=== PATIENT | female | born 1980 | race Caucasian/White ===

== ENCOUNTER 2024-01-20 15:41 | Observation (INO) | payer OTHER, SELFPAY ==
[2024-01-20] VITALS (10 sets, daily range): BP systolic 125–141; BP diastolic 78–96; PULSE 105–122; RESP 17–24; TEMP 36.1–36.9; O2SAT 97–100; BMI 28.8
[2024-01-20 16:12] LABS: Add Manual Diff / Slide Review NO; Basophils Absolute Auto 0 /uL (0-100); Basophils Percent Auto 0.1 % (0-2); Eosinophils Absolute Auto 0 /uL (0-450); Hematocrit 40.4 % (36-46); Hemoglobin 13.8 g/dL (12.0-16.0); Lymphocytes Absolute Auto 800 /uL (1100-4500); Lymphocytes Percent Auto 4.7 % (25-40); Mean Corpuscular HGB Conc 34.2 % (30-36); Mean Corpuscular Hemoglobin 31.2 PG (26-34); Mean Corpuscular Volume 91.2 fL (80-100); Monocytes Absolute Auto 800 /uL (0-900); Neutrophils Absolute Auto 14900 /uL (1500-7000); Neutrophils Percent Auto 90.2 % (50-75); Platelet Count 196 X10^3/uL (150-400); Red Blood Cell Count 4.44 X10^6/uL (4.0-5.2); Red Cell Distribution Width 12.7 % (11.6-14.8); White Blood Cell Count 16.5 X10^3/uL (4.5-11.0)
--- NOTE | 2024-01-20 16:12 | ED.GENADULT ---
HPI - General Adult General Chief complaint: Abdominal Pain Stated complaint: lower rt abd pain Time Seen by Provider: 01/20/24 16:00 Source: patient Mode of arrival: Ambulatory History of Present Illness HPI narrative: Otherwise healthy 43-year-old woman IUD in place comes in with abdominal pain. She began notice some periumbilical pain earlier this morning that is now localizing to the right lower quadrant and becoming persistently worse. She is passing gas did have a bowel movement this did not influence her pain. She has not describing fevers, cough, palpitations, headache. Movement is becoming more and more painful. She describes no significant vaginal discharge Related Data Home Medications Medication Instructions Recorded Confirmed fluticasone propionate 50 1 spray intranasal DAILY 12/30/23 01/20/24 mcg/actuation nasal spray,suspension (Flonase Allergy Relief) sumatriptan succinate 50 mg tablet 50 mg PO QD-BID PRN migraine 01/20/24 01/20/24 Allergies Allergy/AdvReac Type Severity Reaction Status Date / Time erythromycin base AdvReac Mild Rash Verified 01/20/24 15:44 Sulfa (Sulfonamide AdvReac Rash Verified 01/20/24 15:44 Antibiotics) Review of Systems Review of Systems Narrative: Pertinent positive and negative findings as per HPI Patient History Social History household members: spouse Smoking Status: Never smoker alcohol intake: current Smoking Status: Never smoker alcohol intake frequency: 0-2 drinks per day Substance Use Type: does not use Exam Initial Vital Signs Initial Vital Signs: Vital Signs Temperature 97.0 F L 01/20/24 15:44 Pulse Rate 122 H 01/20/24 15:44 Respiratory Rate 17 01/20/24 15:44 Blood Pressure 131/78 01/20/24 15:44 Pulse Oximetry 98 01/20/24 15:44 Oxygen Delivery Method Room Air 01/20/24 15:44 General: Appears uncomfortable but Able to give a complete and coherent history. Well-nourished well-developed HEENT: Moist mucous membranes, normal sclera with reactive pupils, Respiratory: Lungs are clear to auscultation, no wheezing no rales no rhonchi. Full and symmetrical air movement Cardiac: Regular rate and rhythm no murmurs no bruits Abdomen: Soft, significant tenderness in the right lower quadrant with guarding but no rebound. No flank pain Skin: Warm and dry, no rashes Neurologic: Grossly neurologically intact with no obvious asymmetries or abnormalities Extremities: No trauma, well perfused Psych: Cooperative, appropriate insight and affect Course Orders Ordered: Acetaminophen (Acetaminophen 325 Mg Tablet) 650 mg PO Q6H PRN PRN Reason: Fever/Mild Pain (1-3) Acetaminophen (Acetaminophen 325 Mg Tablet) 975 mg PO NOW PRN PRN Reason: Pain, Moderate (4-6) Last Admin: 01/21/24 10:07 Dose: 975 mg Documented By: CIARA Hydrocodone Bitart/Acetaminophen (Hydrocodone/Acet 5/325 Tablet) 1 tab PO Q4H PRN PRN Reason: Pain, Moderate (4-6) Last Admin: 01/20/24 20:25 Dose: 1 tab Documented By: JACOBO Hydrocodone Bitart/Acetaminophen (Hydrocodone/Acet 5/325 Tablet) 2 tab PO Q4H PRN PRN Reason: Pain, Severe (7-10) Last Admin: 01/21/24 02:59 Dose: 2 tab Documented By: JACOBO Fentanyl (Fentanyl 100 Mcg/2 Ml Inj) 0 mcg IV Q5MIN PRN PRN Reason: Pain, Severe (7-10) Hydromorphone HCl (Hydromorphone 0.5 Mg Inj) 0.5 mg IV Q4H PRN PRN Reason: Pain, Moderate (4-6) Hydromorphone HCl (Hydromorphone 1 Mg Inj) 0 mg IV Q5MIN PRN PRN Reason: Pain, Mild (1-3) Piperacillin Sod/Tazobactam (Sod 3.375 gm/ Sodium Chloride) 100 mls @ 25 mls/hr IV Q8H [facility] Last Admin: 01/21/24 15:09 Dose: 25 mls/hr Documented By: Infusion: 01/21/24 13:23 Dose: Infused Documented By: Admin: 01/21/24 06:31 Dose: 25 mls/hr Documented By: Infusion: 01/21/24 02:40 Dose: Infused Documented By: Admin: 01/20/24 22:40 Dose: 25 mls/hr Documented By: JACOBO Sodium Chloride (Normal Saline 0.9%) 1,000 mls @ 100 mls/hr IV CONT [facility] Last Admin: 01/20/24 22:33 Dose: 100 mls/hr Documented By: JACOBO Ibuprofen (Ibuprofen 600 Mg Tablet) 600 mg PO Q6H PRN PRN Reason: Fever/Mild Pain (1-3) Lorazepam (Lorazepam 2 Mg/Ml Inj) 0.25 mg IV NOW PRN PRN Reason: Anxiety Last Admin: 01/21/24 13:45 Dose: 0.25 mg Documented By: LDV Naloxone HCl (Naloxone 0.4 Mg/Ml Vial) 0.2 mg IV Q2MIN PRN PRN Reason: Opiate Reversal Ondansetron HCl (Ondansetron 4 Mg Odt) 4 mg PO NOW PRN PRN Reason: Nausea And Vomiting Last Admin: 01/21/24 12:51 Dose: 4 mg Documented By: LDV Ondansetron HCl (Ondansetron 4 Mg/2 Ml Inj) 4 mg IV NOW PRN PRN Reason: Nausea And Vomiting Last Admin: 01/21/24 02:55 Dose: 4 mg Documented By: Admin: 01/20/24 18:35 Dose: 4 mg Documented By: DULCE Oxycodone HCl (Oxycodone Ir 5 Mg Tablet) 5 mg PO PACUNOW PRN PRN Reason: Mild or moderate pain Sumatriptan Succinate (Sumatriptan 25 Mg Tablet) 50 mg PO Q2H PRN PRN Reason: Headache Discontinued Medications Bupivacaine HCl (Bupivacaine 0.5% (Pf) 30 Ml Vial) 30 ml INJ NOW ONE Stop: 01/21/24 11:17 Last Admin: 01/21/24 11:16 Dose: 30 ml Documented By: Hydromorphone HCl (Hydromorphone 0.5 Mg Inj) 0.5 mg IV Q15MIN PRN PRN Reason: Pain, Hydromorphone HCl (Hydromorphone 0.5 Mg Inj) 0.5 mg IV Q4H PRN PRN Reason: Pain, Moderate (4-6) Sodium Chloride (Normal Saline 0.9%) 1,000 mls @ 1,000 mls/hr IV BOLUS ONE Stop: 01/20/24 17:09 Last Infusion: 01/20/24 17:22 Dose: Infused Documented By: Admin: 01/20/24 16:15 Dose: 1,000 mls/hr Documented By: CARINA Sodium Chloride (Normal Saline 0.9%) 1,000 mls @ 1,000 mls/hr IV BOLUS ONE Stop: 01/20/24 17:16 Last Admin: 01/20/24 17:57 Dose: Not Given Documented By: RANDALL Piperacillin Sod/Tazobactam (Sod 4.5 gm/ Sodium Chloride) 100 mls @ 200 mls/hr IV NOW ONE Stop: 01/20/24 16:30 Last Infusion: 01/20/24 17:49 Dose: Infused Documented By: Admin: 01/20/24 17:04 Dose: 200 mls/hr Documented By: RANDALL Lactated Ringer's (Lactated Ringers) 1,000 mls @ 100 mls/hr IV CONT MICKI Last Infusion: 01/21/24 12:03 Dose: Infused Documented By: Admin: 01/21/24 09:55 Dose: 100 mls/hr Documented By: Infusion: 01/21/24 04:36 Dose: Infused Documented By: Admin: 01/20/24 18:36 Dose: 100 mls/hr Documented By: DULCE Cefazolin Sodium/Dextrose (Ancef) 100 mls @ 200 mls/hr IV NOW ONE Stop: 01/21/24 11:42 Last Admin: 01/21/24 10:40 Dose: 200 mls/hr Documented By: SHABANA Ondansetron HCl (Ondansetron 4 Mg/2 Ml Inj) 4 mg IV NOW ONE Stop: 01/20/24 16:18 Last Admin: 01/20/24 17:22 Dose: Not Given Documented By: RANDALL Scopolamine (Scopolamine 1 Patch) 1 patch TOP NOW ONE Stop: 01/21/24 10:14 Last Admin: 01/21/24 10:24 Dose: 1 patch Documented By: CIARA Vital Signs Vital signs: Vital Signs - 8 hr 01/20/24 15:44 01/20/24 15:59 01/20/24 16:00 Temperature 97.0 F L Pulse Rate 122 H 117 H 118 H Respiratory Rate 17 Blood Pressure 131/78 Pulse Oximetry 98 98 98 Oxygen Delivery Method Room Air 01/20/24 16:02 01/20/24 16:02 01/20/24 16:30 Temperature Pulse Rate 114 H Respiratory Rate 24 Blood Pressure 139/93 H 141/96 H Pulse Oximetry 97 Oxygen Delivery Method 01/20/24 16:30 Temperature Pulse Rate 113 H Respiratory Rate 21 Blood Pressure Pulse Oximetry 97 Oxygen Delivery Method Medical Decision Making Lab Data 01/20/24 15:55 01/20/24 15:55 Labs: Lab Results 01/20/24 01/20/24 Range/Units 15:55 16:00 WBC 16.5 H (4.5-11.0) X10^3/uL RBC 4.44 (4.0-5.2) X10^6/uL Hgb 13.8 (12.0-16.0) g/dL Hct 40.4 (36-46) % MCV 91.2 (80-100) fL MCH 31.2 (26-34) PG MCHC 34.2 (30-36) % RDW 12.7 (11.6-14.8) % Plt Count 196 (150-400) X10^3/uL Neut % (Auto) 90.2 H (50-75) % Lymph % (Auto) 4.7 L (25-40) % [place] % (Auto) 5.0 (3-14) % Eos % (Auto) 0.0 L (2-4) % Baso % (Auto) 0.1 (0-2) % Neut # (Auto) 55701 H (8196-3796) /uL Lymph # (Auto) 800 L (4993-2936) /uL [place] # (Auto) 800 (0-900) /uL Eos # (Auto) 0 (0-450) /uL Baso # (Auto) 0 (0-100) /uL Sodium 134 L (137-145) mmol/L Potassium 4.1 (3.4-5.1) mmol/L Chloride 103 (98-107) mmol/L Carbon Dioxide 24 (22-32) mmol/L BUN 13 (7-17) mg/dL Creatinine 0.71 (0.52-1.04) mg/dL Estimated GFR > 60 (>60) mL/min BUN/Creatinine Ratio 18.3 (6-22) Glucose 125 H (70-100) mg/dL Lactate 1.7 (0.7-2.1) mmol/L Calcium 9.3 (8.4-10.2) mg/dL Total Bilirubin 0.8 (0.2-1.3) mg/dL AST 35 (14-36) IU/L ALT 27 (<35) IU/L Alkaline Phosphatase 67 (38-126) U/L Total Protein 7.5 (6.3-8.2) g/dL Albumin 4.3 (3.5-5.0) g/dL Globulin 3.2 (1.7-4.1) g/dL Albumin/Globulin Ratio 1.3 (1.0-2.8) Lipase 87 (23-300) U/L Procalcitonin 0.046 (<0.5) ng/mL Urine RBC 0-1/hpf (0-5/HPF) Urine WBC 0-1/hpf (0-5/HPF) Ur Squamous Epith Cells 0-1 /hpf (0-5/HPF) Urine Bacteria None seen (None) Ur Culture Indicated? Cult not indicated Vol Urine Centrifuged 10ml (spun) Point of Care Testing Test Results Negative Urine Dip Bedside Urine Glucose Negative Bedside Urine Bilirubin - Negative Bedside Urine Ketone - Negative Urine Specific [place] 1.020 Bedside Urine Occult Blood +/- Bedside Urine pH 6.0 Bedside Urine Protein - Negative Bedside Urine Urobilinogen - Negative Bedside Urine Nitrite - Negative Bedside Urine Leukocytes - Negative Esterase Point of care testing: Point of Care Testing Test Results Negative Urine Dip Bedside Urine Glucose Negative Bedside Urine Bilirubin - Negative Bedside Urine Ketone - Negative Urine Specific [place] 1.020 Bedside Urine Occult Blood +/- Bedside Urine pH 6.0 Bedside Urine Protein - Negative Bedside Urine Urobilinogen - Negative Bedside Urine Nitrite - Negative Bedside Urine Leukocytes - Negative Esterase [facility] Narrative Medical decision making narrative: CC: Right lower quadrant pain developing over the day Complicating co-morbidities: Describes a history of chronic right hip pain, she thought that the discomfort this morning was related to her hip. Data collected from: patient Differential considered: Appendicitis, pyelonephritis, kidney stone, ovarian abnormality Exam documented above, pertinent findings include: Significant right lower quadrant tenderness with guarding not yet rebound. No flank pain Lab Test results independently reviewed as above. Pertinent findings: CBC is notable for white count at 16.5 with 90.2 neutrophils. She has no anemia Chemistries are reassuring with normal renal function Imaging studies independently reviewed: Preliminary ultrasound report is consistent with acute appendicitis. Appendix is dilated to 1.1 cm, has 3 stones the tip, the entire appendix is hyperemic, she does have some free fluid but no evidence of rupture Consultations: 5pm Care is reviewed with Dr. Maldonado who will come to see and evaluate the patient Treatments: Fluids, Zosyn, Zofran, Dilaudid Re-evaluations: Findings reviewed with the patient. Confirmed that her last meal was at 1:00 p.m. this afternoon and it was chicken noodle soup Discussion: 43-year-old woman with developing appendicitis no evidence of rupture at this point. She has been started on antibiotics, pain is adequately controlled, have reviewed with Dr. Maldonado are gentleman surgeon today. He will be by to evaluate her further with anticipation of surgical appendectomy. Discharge Plan Departure Patient Disposition: Admitted as Observation Clinical Impression: Acute appendicitis Qualifiers: Acute appendicitis type: with localized peritonitis Appendicitis gangrene presence: without gangrene Appendicitis perforation presence: without perforation Appendicitis abscess presence: without abscess Qualified Code(s): K35.30 - Acute appendicitis with localized peritonitis, without perforation or gangrene Admit Date/Time: 01/20/24 18:00 Admit Provider: Ranjith Maldonado
[2024-01-20] MEDS: SODIUM CHLORIDE 0.9% 1,000 ML 1000 ML IV (16:15)
--- NOTE | 2024-01-20 16:18 | DI.US.S_ITS ---
PROCEDURE: US ABDOMEN LIMITED INDICATIONS: RLQ pain, strong suspicion for appy TECHNIQUE: Real-time focused scanning was performed of the abdomen with attention to the appendix, with image documentation. COMPARISON: None. FINDINGS: Appendix visualization: Questionable appearance of partially visualized appendiceal tip Appendix measurements: 9 mm Associated findings: Echogenic fat: Present Appendiceal compressibility: Absent Appendicoliths: Present Nearby free fluid: Simple free fluid Lymphadenopathy: Absent Tenderness on exam: Present IMPRESSION: Very limited visualization of what appears to be a possible appendiceal tip. If it is indeed the appendix it is enlarged and does not demonstrate compressibility. Mild surrounding fluid. Findings are suggestive of appendicitis. However, secondary to very limited visualization, if concern remains, CT is recommended. Dictated by: Felecia Castillo M.D. on 01/20/2024 at 17:17 Approved by: Felecia Castillo M.D. on 01/20/2024 at 17:18
[2024-01-20 16:28] LABS: Lactate (Lactic Acid) 1.7 mmol/L (0.7-2.1)
[2024-01-20 16:29] LABS: Alanine Aminotransferase 27 IU/L (<35); Albumin 4.3 g/dL (3.5-5.0); Albumin Globulin Ratio 1.3 (1.0-2.8); Alkaline Phosphatase 67 U/L (38-126); Aspartate Aminotransferase 35 IU/L (14-36); BUN Creatinine Ratio 18.3 (6-22); Bilirubin Total 0.8 mg/dL (0.2-1.3); Blood Urea Nitrogen 13 mg/dL (7-17); Calcium 9.3 mg/dL (8.4-10.2); Carbon Dioxide 24 mmol/L (22-32); Chloride 103 mmol/L (98-107); Estimated Glomerular Filt Rate > 60 mL/min (>60); Globulin 3.2 g/dL (1.7-4.1); Glucose 125 mg/dL (70-100); HEMOLYSIS 15 (0-50); Lipase 87 U/L (23-300); Potassium 4.1 mmol/L (3.4-5.1); Sodium 134 mmol/L (137-145); Total Protein 7.5 g/dL (6.3-8.2)
[2024-01-20 16:37] LABS: Urine Volume 10mL (spun)
[2024-01-20 16:38] LABS: Bacteria Urine None Seen; Culture Indicated Urine Cult Not Indicated; RBC Urine 0-1/HPF (0-5/HPF); Squamous Epithelial Cell Urine 0-1 /HPF (0-5/HPF); WBC Urine 0-1/HPF (0-5/HPF)
[2024-01-20 16:45] LABS: Procalcitonin 0.046 ng/mL (<0.5)
[2024-01-20] MEDS: PIPERACILLIN/TAZO 4.5 GM in SODIUM CHLORIDE 0.9% 100 ML IV (17:04)
--- NOTE | 2024-01-20 17:34 | PM.HP.1 ---
History of Present Illness History of Present Illness Date Patient Seen: 01/20/24 Time Patient Seen: 17:34 Chief complaint: lower rt abd pain Narrative: Sara is a 43-year-old woman who presents to the ER with 1 day of right lower quadrant abdominal pain. She has had some nausea and vomiting. She had some diarrhea yesterday. No prior abdominal surgeries. In the ER today she has an elevated white count and ultrasound that shows a most likely acute appendicitis without perforation. [facility] Social History Smoking Status: Never smoker Meds Home Medications and Allergies Home Medications Medication Instructions Recorded Confirmed Type amoxicillin 875 mg-potassium 1 tab PO BID #14 tabs 12/30/23 12/30/23 Rx clavulanate 125 mg tablet fluticasone propionate 50 1 spray intranasal DAILY 12/30/23 12/30/23 History mcg/actuation nasal spray,suspension (Flonase Allergy Relief) Allergies Allergy/AdvReac Type Severity Reaction Status Date / Time erythromycin base AdvReac Mild Rash Verified 01/20/24 15:44 Sulfa (Sulfonamide AdvReac Rash Verified 01/20/24 15:44 Antibiotics) Exam Vital Signs (past 8 hours): - 01/20/24 15:44 01/20/24 15:59 01/20/24 16:00 Temperature 97.0 F L Pulse Rate 122 H 117 H 118 H Respiratory Rate 17 Blood Pressure 131/78 Pulse Oximetry 98 98 98 Oxygen Delivery Method Room Air 01/20/24 16:02 01/20/24 16:02 01/20/24 16:30 Temperature Pulse Rate 114 H Respiratory Rate 24 Blood Pressure 139/93 H 141/96 H Pulse Oximetry 97 Oxygen Delivery Method 01/20/24 16:30 01/20/24 17:02 01/20/24 17:02 Temperature Pulse Rate 113 H 109 H Respiratory Rate 21 22 Blood Pressure 125/84 Pulse Oximetry 97 Oxygen Delivery Method Oxygen Delivery Method Room Air Const General: No acute distress Resp Effort & Inspection: normal respiratory effort Other: Abdomen tender to palpation at McBurney's point Objective Labs 01/20/24 15:55 01/20/24 15:55 Labs: Laboratory Results - last 24 hr 01/20/24 01/20/24 15:55 16:00 WBC 16.5 H RBC 4.44 Hgb 13.8 Hct 40.4 MCV 91.2 MCH 31.2 MCHC 34.2 RDW 12.7 Plt Count 196 Neut % (Auto) 90.2 H Lymph % (Auto) 4.7 L [place] % (Auto) 5.0 Eos % (Auto) 0.0 L Baso % (Auto) 0.1 Neut # (Auto) 64397 H Lymph # (Auto) 800 L [place] # (Auto) 800 Eos # (Auto) 0 Baso # (Auto) 0 Sodium 134 L Potassium 4.1 Chloride 103 Carbon Dioxide 24 BUN 13 Creatinine 0.71 Estimated GFR > 60 BUN/Creatinine Ratio 18.3 Glucose 125 H Lactate 1.7 Calcium 9.3 Total Bilirubin 0.8 AST 35 ALT 27 Alkaline Phosphatase 67 Total Protein 7.5 Albumin 4.3 Globulin 3.2 Albumin/Globulin Ratio 1.3 Lipase 87 Procalcitonin 0.046 Urine RBC 0-1/hpf Urine WBC 0-1/hpf Ur Squamous Epith Cells 0-1 /hpf Urine Bacteria None seen Ur Culture Indicated? Cult not indicated Vol Urine Centrifuged 10ml (spun) Assessment & Plan Assessment and plan (1) Acute appendicitis: Qualifiers: Acute appendicitis type: with localized peritonitis Appendicitis abscess presence: without abscess Appendicitis gangrene presence: without gangrene Appendicitis perforation presence: without perforation Qualified Code(s): K35.30 - Acute appendicitis with localized peritonitis, without perforation or gangrene Status: Acute Plan We discussed the risks and benefits of laparoscopic appendectomy versus antibiotic therapy alone. She prefers to proceed with laparoscopic appendectomy. We will proceed pending OR availability.
[2024-01-20] MEDS: ONDANSETRON 4 MG/2 ML INJ IV (18:35)
[2024-01-20] MEDS: LACTATED RINGERS 1,000 ML 100 ML IV (18:36)
[2024-01-20] MEDS: HYDROCODONE/ACET 5/325 TABLET 1 TAB PO (20:25)
[2024-01-20] MEDS: SODIUM CHLORIDE 0.9% 1,000 ML 100 ML IV (22:33)
[2024-01-20] MEDS: PIPERACILLIN/TAZO 3.375 GM in SODIUM CHLORIDE 0.9% 100 ML IV (22:40)
[2024-01-21] VITALS (16 sets, daily range): BP systolic 104–152; BP diastolic 67–86; PULSE 82–114; RESP 12–200; TEMP 36.3–38.1; O2SAT 95–98; BMI 28.8
--- NOTE | 2024-01-21 | PATH_ITS ---
[facility] Accession Number: [id number] No. of containers..01 Tissue . 01 Material submitted: . appendix - APPENDIX . 01 Diagnosis: APPENDIX, APPENDECTOMY: Acute appendicitis and periappendicitis. [facility] 01/28/2024 1010 Local . 01 Electronically signed: . Cherry Ruth MD, Pathologist NPI- [id number] . 01 Gross description: . Received in formalin with two identifiers and appendix, is a rios vermiform appendix, 7.1 cm in length by 1.2 cm in average diameter with rios roughened serosa and adherent material consistent with exudate. The mesoappendix extends out to 1.2 cm. The margin is inked blue. The lumen ranginess from 0.2 to 0.9 cm in diameter. The castrejon are sierra to rios with a ragged area possibly consistent with partial thickness defect. Remaining castrejon average 0.2 cm with no distinct lesions identified. Law Firm Receptionist sections to include one-half of bisected distal tip, cross section, and margin en face are submitted in A1. ([id number]) /MRV 01/22/20242001 Local . 01 Pathologist provided ICD-10: K35.80 . 01 CPT . 237338 Specimen Comment: A courtesy copy of this report has been sent to [phone] Performed at: [address] [id number] MD Pop Zhao MD Phone: [phone]
[2024-01-21] MEDS: ONDANSETRON 4 MG/2 ML INJ IV (02:55)
[2024-01-21] MEDS: HYDROCODONE/ACET 5/325 TABLET 2 TAB PO (02:59)
--- NOTE | 2024-01-21 03:16 | PC.NURSE ---
Dr. Maldonado called via answering service to report patient C/O increasing pain, nausea & elevated temp. @ 100.6. Awaiting call back, will monitor patient.
--- NOTE | 2024-01-21 03:40 | CM.MNRNOTE ---
Dr. Maldonado called back reported all patient's complained, additional pain medication of 0.5 mg. Dilaudid ordered. Will monitor.
--- NOTE | 2024-01-21 03:43 | PC.NURSE ---
Rechecked temperature orally 101.0, cooling measures implemented, will monitor & recheck temperature.
[2024-01-21] MEDS: PIPERACILLIN/TAZO 3.375 GM in SODIUM CHLORIDE 0.9% 100 ML IV ×3 (06:31→22:24)
[2024-01-21] MEDS: LACTATED RINGERS 1,000 ML 100 ML IV (09:55)
[2024-01-21] MEDS: ACETAMINOPHEN 325 MG TABLET 975 MG PO (10:07)
[2024-01-21] MEDS: SCOPOLAMINE 1 PATCH TOP (10:24)
--- NOTE | 2024-01-21 10:25 | PM.PREOP ---
Pre-operative Note COVID-19 COVID-19 status: Not tested Interval Note History & Physical reviewed/Exam performed by Physician: Yes Changes to H&P: No ASA Class (for procedural sedation): II
[2024-01-21] MEDS: CEFAZOLIN 2 GM/100 ML PREMIX 100 ML IV (10:40)
[2024-01-21] MEDS: BUPIVACAINE 0.5% (PF) 30 ML VIAL INJ (11:16)
--- NOTE | 2024-01-21 11:30 | P.OP_ITS ---
Operative Date/Time/Diagnoses Date of procedure: 01/21/24 Time of procedure: 11:30 Pre-op diagnosis: Acute appendicitis Post-op diagnosis: same Procedure & Clinicians Procedure: Laparoscopic appendectomy Same procedure as scheduled: Yes Surgeon: Ranjith Maldonado Cot Assembler: Lukas Og Anesthesia Type: General Operative Notes Procedure in detail: The patient was on IV antibiotics. The patient was brought to the operating room, placed on the table in the supine position and general endotracheal anesthesia was induced. A time-out was performed. The abdomen was prepped and draped in the usual fashion. After injection of 0.25% Marcaine a 1 cm infraumbilical incision was created with a 15 blade scalpel. There was an umbilical hernia which was dissected free from the umbilical skin and umbilical stalk. The hernia sac was opened and the Chanel port was placed and the abdomen was insufflated to 15 mmHg. The camera was inserted and there was no evidence of any injury from the entry. Next, 5 mm ports were placed in the suprapubic and left lower quadrant positions under direct vision. The patient was placed in Trendelenburg with the right-side elevated. The terminal ileum was swept away from the cecum and the appendix was visualized. The appendix was inflamed distally without evidence of gabino perforation. A window was created at the base of the mesoappendix and the Endo-ADRY stapler was used to divide the appendix at its base. The power seal device was used to take down the rest of the mesoappendix. The specimen was placed in a Endo-Catch bag. A small amount of fluid with suctioned from the base of the appendix and pelvis. The table was flattened and the terminal ileum and omentum were allowed to slide in over the appendiceal stump. Finally, the 5 mm ports were removed under direct vision. The pneumoperitoneum was released and the Chanel port was removed followed by the Endo-Catch bag. Additional local was injected into the fascia and the infraumbilical incision was closed with 2 interrupted 2-0 Vicryl sutures. The skin incisions were closed with 4 Monocryl. Steri-Strips were applied followed by Band-Aids. EBL: 25 mL Specimen: Appendix Lukas TAYLOR provided assistance with exposure, retraction and closure of incisions. Post-operative Condition: stable Disposition: PACU
[2024-01-21] MEDS: ONDANSETRON 4 MG ODT PO (12:51)
--- NOTE | 2024-01-21 13:16 | CM.DANOTE ---
Initial DCP Assessment Visit Note Reviewed EMR and team rounds for status updates. Pt was in surgery at the time of this assessment, she is , lives independently in her own home w/spouse, spouse will transport her home once she's medically cleared for d/c. Payor: Nancy VILLARREAL PCP: Dr. Green Pt is a 43 year-old female who presented to the ED last evening with c/o worsening right lower quadrant abdominal pain. Abdominal ultrasound was positive for acute appendicitis. Surgery was consulted, and she was made NPO in preparation for appendectomy surgery that was completed today. She is recovering post-op, will likely d/c either later this evening or tomorrow. DCP will continue to follow and assist with any evolving d/c resource needs. Discharge Planning/Care Management CM Discharge Assessment Start: 01/21/24 13:14 Freq: Status: Active Protocol: Document 01/21/24 13:15 DPL (Rec: 01/21/24 13:16 DPL [id number]) Discharge Planning Assessment Assigned Hebrew Professor LUCIANA Sutherland Advance Directives? No History Provided By Patient,Significant Other Has Patient been admitted in last 30 No days? Prior Living Arrangements House Household Members spouse Type of transporation used prior to Drives own vehicle admit Independent with ADL's Yes Is patient alert and oriented? Yes Comment N/A Caregiver for Another Yes Comment No identified home d/c needs at this time. Barriers to Discharge No Discharge Plan Home Transportation Arrangement Spouse Referrals Initiated None needed Review Status In Process Please Provide Date Initial DC 01/20/22 Assessment Was Performed
[2024-01-21] MEDS: LORazepam 2 MG/ML INJ 0.25 MG IV (13:45)
[2024-01-21] MEDS: SUMAtriptan 25 MG TABLET 50 MG PO (15:00)
[2024-01-21] MEDS: HYDROMORPHONE 0.5 MG INJ IV ×2 (18:25→22:27)
[2024-01-21] MEDS: LORazepam 2 MG/ML INJ 0.5 MG IV (18:27)
[2024-01-22 01:47] VITALS: BP 97/64; PULSE 74; RESP 18; TEMP 36.6; O2SAT 95
[2024-01-22] MEDS: PIPERACILLIN/TAZO 3.375 GM in SODIUM CHLORIDE 0.9% 100 ML IV (06:01)
[2024-01-22 06:30] VITALS: BP 99/61; PULSE 74; RESP 18; TEMP 37.2; O2SAT 96
[2024-01-22 08:00] VITALS: BP 102/67; PULSE 72; RESP 16; TEMP 36.9; O2SAT 99
[2024-01-22] MEDS: IBUPROFEN 600 MG TABLET PO (08:14)
[2024-01-22] MEDS: HYDROCODONE/ACET 5/325 TABLET 2 TAB PO (08:15)
[2024-01-22] MEDS: ONDANSETRON 4 MG/2 ML INJ IV (08:29)
--- NOTE | 2024-01-22 09:26 | CM.DPC ---
DCP Cont. Reviewed EMR and team rounds for status updates. Pt has recovered well and has been medically cleared for home discharge this morning. Her spouse will transport her home. No further DCP needs identified at this time.
--- NOTE | 2024-01-22 10:14 | PM.PN.1 ---
Subjective Subjective Date Patient Seen: 01/22/24 Time Patient Seen: 10:14 Interval history: Doing well today. Pain is controlled with oral pain medications. Tolerating a diet. Exam Vital Signs (past 8 hours): - 01/22/24 06:30 01/22/24 08:00 Temperature 98.9 F 98.5 F Pulse Rate 74 72 Respiratory Rate 18 16 Blood Pressure 99/61 102/67 Pulse Oximetry 96 99 Oxygen Flow Rate 0 Oxygen Delivery Method Room Air Oxygen Flow Rate 0 Const General: healthy appearing Objective Labs 01/20/24 15:55 01/20/24 15:55 PFSH Social History household members: spouse Smoking Status: Never smoker alcohol intake: current Assessment & Plan Assessment and plan (1) Acute appendicitis: Qualifiers: Acute appendicitis type: with localized peritonitis Appendicitis abscess presence: without abscess Appendicitis gangrene presence: without gangrene Appendicitis perforation presence: without perforation Qualified Code(s): K35.30 - Acute appendicitis with localized peritonitis, without perforation or gangrene Status: Acute Plan Home today if she tolerates her diet. Quality VTE Deep Vein Thrombosis/Pulmonary Embolism Present on Admission: No
== END 2024-01-22 11:42 | disposition home or self-care (01) ==
LOC: ED 17:18 → AC 18:01
PROVIDERS: Admitting Provider Surgery; Emergency Provider Emergency Medicine; PCP Family Medicine; Referring Provider Emergency Medicine; Visit Provider Surgery
PROC: 0DTJ4ZZ Resection of Appendix, Percutaneous Endoscopic Approach (ICD-10-PCS; CPT 44970; principal; 2024-01-21 10:45)
DX: K35.80 Unspecified acute appendicitis (principal); K42.9 Umbilical hernia without obstruction or gangrene
CPT/HCPCS: 44970; 36415; 76705; 80053; 81003; 81015; 81025; 83605; 83690; 84145; 85025; 87040; 96365; 96366; 96375; 96376; 99221; 99284; G0378; J0690; J1100; J1170; J1885; J2060; J2250; J2405; J2543; J2704; J3010

== ENCOUNTER → 2024-02-03 12:42 | Outpatient (CLI) | payer OTHER, SELFPAY ==
[2024-01-20 18:10] VITALS: BMI 28.8
[2024-02-03 13:11] LABS: Add Manual Diff / Slide Review NO; Basophils Absolute Auto 0 /uL (0-100); Basophils Percent Auto 0.6 % (0-2); Eosinophils Absolute Auto 100 /uL (0-450); Eosinophils Percent Auto 1.3 % (2-4); Hematocrit 41.3 % (36-46); Hemoglobin 14.3 g/dL (12.0-16.0); Lymphocytes Absolute Auto 2200 /uL (1100-4500); Lymphocytes Percent Auto 28.5 % (25-40); Mean Corpuscular HGB Conc 34.8 % (30-36); Mean Corpuscular Hemoglobin 31.5 PG (26-34); Mean Corpuscular Volume 90.6 fL (80-100); Monocytes Absolute Auto 500 /uL (0-900); Monocytes Percent Auto 6.7 % (3-14); Neutrophils Absolute Auto 4900 /uL (1500-7000); Neutrophils Percent Auto 62.9 % (50-75); Platelet Count 321 X10^3/uL (150-400); Red Blood Cell Count 4.55 X10^6/uL (4.0-5.2); Red Cell Distribution Width 12.3 % (11.6-14.8); White Blood Cell Count 7.8 X10^3/uL (4.5-11.0)
[2024-02-03 13:18] LABS: Hemoglobin A1C% w Est Avg Glu 5.1 % (4.0-6.0)
[2024-02-03 13:36] LABS: Alanine Aminotransferase 27 IU/L (<35); Albumin 4.6 g/dL (3.5-5.0); Albumin Globulin Ratio 1.4 (1.0-2.8); Alkaline Phosphatase 75 U/L (38-126); Aspartate Aminotransferase 30 IU/L (14-36); BUN Creatinine Ratio 17.6 (6-22); Bilirubin Total 0.6 mg/dL (0.2-1.3); Blood Urea Nitrogen 13 mg/dL (7-17); Calcium 9.3 mg/dL (8.4-10.2); Carbon Dioxide 27 mmol/L (22-32); Chloride 104 mmol/L (98-107); Cholesterol 251 mg/dL (140-199); Estimated Glomerular Filt Rate > 60 mL/min (>60); Globulin 3.3 g/dL (1.7-4.1); Glucose 98 mg/dL (70-100); HDL Cholesterol 56 mg/dL (40-60); HEMOLYSIS < 15 (0-50); LDL Cholesterol Calculated 160 mg/dL (<100); Potassium 4.2 mmol/L (3.4-5.1); Sodium 137 mmol/L (137-145); Total Protein 7.9 g/dL (6.3-8.2); Triglycerides 173 mg/dL (35-150)
[2024-02-03 14:05] LABS: TSH w/ Reflex to FT4 0.95 uIU/mL (0.47-4.68)
== END ==
PROVIDERS: Surgery; PCP Family Medicine; Referring Provider Family Medicine; Visit Provider Family Medicine
DX: K35.80 Unspecified acute appendicitis (principal); Z13.220 Encounter for screening for lipoid disorders; R63.5 Abnormal weight gain; Z13.1 Encounter for screening for diabetes mellitus
CPT/HCPCS: 36415; 80053; 80061; 83036; 84443; 85025

== ENCOUNTER → 2024-03-24 16:29 | Outpatient (CLI) | payer OTHER, SELFPAY ==
[2024-01-20 18:10] VITALS: BMI 28.8
--- NOTE | 2024-03-24 16:30 | DI.MG.S_ITS ---
BILATERAL DIGITAL SCREENING MAMMOGRAM 3D/2D WITH CAD: 03/24/2024 CLINICAL: Baseline exam. Routine screening. No prior exams were available for comparison. Both breasts are heterogeneously dense, which may obscure small masses (category c / 51-75% glandular tissue). Current study was also evaluated with a Computer Aided Detection (CAD) system. There is a possible focal asymmetry in the left breast at 12 o'clock middle depth. No other significant masses, calcifications, or other findings are seen in either breast. IMPRESSION: INCOMPLETE: NEEDS ADDITIONAL IMAGING EVALUATION The possible focal asymmetry in the left breast is indeterminate. Additional views with possible ultrasound are recommended. Based on the Tyrer Cuzick model (a risk assessment model) the patient's lifetime risk is 15.6% and her 10 year risk is 2.2%. According to the ACR, ACS, and NCCN guidelines, an annual breast MRI exam along with mammogram is recommended if the patient's lifetime risk is 20% or greater. This exam was interpreted at Station ID: [id number]. NOTE: For mammograms, a report in lay terms will be sent to the patient. Approximately 15% of breast malignancies will not be visualized mammographically. In the management of a palpable breast mass, a negative mammogram must not discourage biopsy of a clinically suspicious lesion. Electronically Signed By: Rene [email or web address]:03/25/2024 11:38:10 letter sent: Additional Imaging Needed ACR BI-RADS Category 0: Incomplete 3340F
== END ==
PROVIDERS: PCP Family Medicine; Referring Provider Family Medicine; Visit Provider Family Medicine
DX: Z12.31 Encounter for screening mammogram for malignant neoplasm of breast (principal); R92.333 Mammographic heterogeneous density, bilateral breasts
CPT/HCPCS: 77063; 77067

== ENCOUNTER → 2024-04-10 10:18 | Outpatient (CLI) | payer OTHER, SELFPAY ==
[2024-01-20 18:10] VITALS: BMI 28.8
--- NOTE | 2024-04-10 10:18 | DI.MG.S_ITS ---
UNILATERAL LEFT DIGITAL DIAGNOSTIC MAMMOGRAM 3D/2D WITH ADDITIONAL VIEWS: 04/10/2024 CLINICAL: Additional evaluation requested from prior study. Comparison is made to exam dated: 03/24/2024 mammogram - [facility]. The left breast is heterogeneously dense, which may obscure small masses (category c / 51-75% glandular tissue). The possible focal asymmetry in the left breast at 12 o'clock middle depth is not reproduced and presumably represented superimposed breast tissue. No other significant masses or calcifications are seen in the breast. IMPRESSION: NEGATIVE There is no mammographic evidence of malignancy. Return to annual mammogram screening schedule is recommended. Based on the Tyrer Cuzick model (a risk assessment model) the patient's lifetime risk is 15.6% and her 10 year risk is 2.2%. According to the ACR, ACS, and NCCN guidelines, an annual breast MRI exam along with mammogram is recommended if the patient's lifetime risk is 20% or greater. This exam was interpreted at Station ID: [id number]. NOTE: For mammograms, a report in lay terms will be sent to the patient. Approximately 15% of breast malignancies will not be visualized mammographically. In the management of a palpable breast mass, a negative mammogram must not discourage biopsy of a clinically suspicious lesion. Electronically Signed By: Rene [email or web address]:04/10/2024 16:39:23 letter sent: Normal Exam ACR BI-RADS Category 1: Negative [id number]
== END ==
PROVIDERS: PCP Family Medicine; Referring Provider Family Medicine; Visit Provider Family Medicine
DX: R92.8 Other abnormal and inconclusive findings on diagnostic imaging of breast (principal); R92.332 Mammographic heterogeneous density, left breast
CPT/HCPCS: 77065; G0279